=== PATIENT | male | born 2000 | race Caucasian/White ===

== ENCOUNTER 2018-08-25 08:26 | Emergency (ER) | payer OTHER ==
[~2018-08-25] VITALS: Wt 61.4 kg
[2018-08-25 08:35] VITALS: BP 141/79; PULSE 56; RESP 20
[2018-08-25] MEDS ORDERED: KETOROLAC 60 MG INJ IM STA (10:26)
[2018-08-25] MEDS ORDERED: CEFAZOLIN 1 GM INJ IM ONE (12:00)
[2018-08-25] MEDS ORDERED: IBUP-1542 PO (12:25)
[2018-08-25] MEDS ORDERED: CEPH-443 PO (12:25)
--- NOTE | 2018-08-26 22:03 | ERD ---
ER Documentation Chief Complaint Chief Complaint l. toe pain s/p trauma last night HPI 18-year-old male patient with no significant past medical history presents to ED complaining of left great toe injury, crush injury due to the symbols that accidentally fell onto his left great toe. Patient is afebrile and nontoxic- appearing. Patient reports that his nailbed is black and is the most painful. Patient reports that he is able to walk however it hurts his left toe. Denies any fever, chills, sensation, loss of range of motion. ROS All systems reviewed and are negative except as per history of present illness. Medications Home Meds Active Scripts Ibuprofen* (Motrin*) 600 Mg Tab, 600 MG PO Q6, #30 TAB Prov:CRISTINA JENKINS PA-C 08/25/18 Cephalexin* (Keflex*) 500 Mg Capsule, 500 MG PO QID for 7 Days, CAP Prov:CRISTINA JENKINS PA-C 08/25/18 PMhx/Soc Medical and Surgical Hx: pt denies Medical Hx, pt denies Surgical Hx Hx Alcohol Use: No Hx Substance Use: No Hx Tobacco Use: No Smoking Status: Never smoker FmHx Family History: No diabetes, No coronary disease Physical Exam Vitals Vital Signs Date Temp Pulse Resp B/P (MAP) Pulse Ox O2 O2 Flow FiO2 Time Delivery Rate 08/25/18 98.0 56 20 141/79 99 08:35 (99) Physical Exam Const: Sxm-aue-jaxekxxib, well-nourished. In no acute distress. Head: Atraumatic, normocephalic Eyes: Normal Conjunctiva without injection ENT: Normal external ear, nose and mouth. Neck: Full range of motion. No meningismus. Resp: Clear to auscultation bilaterally. No wheezing, rhonchi, rales, or crackles. No accessory muscle use. No retractions. Cardio: Regular rate and rhythm, no murmurs Skin: No petechiae or rashes Back: No midline tenderness. No CVA tenderness. Ext: No cyanosis, or edema. Cap refill less than 2 seconds. Distal pulses intact bilaterally. Subungual hematoma noted of the left great toe. Full range of motion of the hip IP joint, MCP joint bilaterally. Neur: Awake and alert. Normal gait and coordination. Muscle strength 5/5. Sensation intact bilaterally. Psych: Normal Mood and Affect Results 24 hrs Current Medications Medications Dose Sig/Patrick Start Time Status Last (Trade) Ordered Route PRN Stop Time Admin Dose Reason Admin Ketorolac 60 mg ONCE STAT 08/25/18 DC 08/25/18 Tromethamine IM 10:26 10:49 (Toradol) 08/25/18 10:29 Cefazolin 1 gm ONCE ONCE 08/25/18 DC 08/25/18 Sodium IM 12:00 12:37 (Ancef) 08/25/18 12:01 Procedures/MDM 18-year-old male patient with no significant past medical history presents to the ED stating that he was in band practice, accidentally hit his guitar onto the symbols and it fell onto his left great toe crushing it. Patient is afebrile and nontoxic-appearing. Left great toe x-ray was ordered to further evaluate patient. Patient was also noted to have some subungual hematoma. Betadine was used to clean the affected area of the left great toe for sterilization. A electric cauterizer was used to drain patient's subungual hematoma as patient did give consent. No complications of the procedure. Patient was also treated here in the ED with Ancef 1 g. IMPRESSION: Small minimally-displaced fracture of the lateral/plantar base of the great toe distal phalanx. Patient is placed in a orthosis shoe with oneida splint tape. Crutches given to patient to help with ambulation. Splint Assessment: Neurovascularly intact pre and post splint placement with good fit. Patient noted to have a minimally displaced fracture of the base of the left great toe of the distal phalanx of the left foot. Patient's extremity symptoms have stabilized while they have been evaluated in the department and are appropriate for outpatient follow up. No evidence of compartment syndrome, neurologic injury, vascular injury, open joint, open fracture, tendon laceration, septic arthritis, osteomyelitis, DVT, foreign body, or other emergent conditions. This patient was discussed with my supervising physician, Dr. Davidson who agreed with the management discharge plan. Diagnosis: Injury of Toe Discharge medications: Ibuprofen, Keflex Follow up with primary care physician in 1-2 days for referral to orthopedic physician. Instructed patient to return to the ED sooner for any worsening symptoms. Patient's questions were answered. Patient is hemodynamically stable. Patient understood and agreed with discharge plan. Patient discharged stable. Disclaimer: Inadvertent spelling and grammatical errors are likely due to EHR/dictation software use and do not reflect on the overall quality of patient care. Also, please note that the electronic time recorded on this note does not necessarily reflect the actual time of the patient encounter. Departure Diagnosis: Primary Impression: Injury of toe Encounter type: initial encounter Laterality: left Qualified Codes: S99.922A - Unspecified injury of left foot, initial encounter Condition: Stable Patient Instructions: Subungual Hematoma, Fracture, Toe (Open) Referrals: [facility] YOU HAVE RECEIVED A MEDICAL SCREENING EXAM AND THE RESULTS INDICATE THAT YOU DO NOT HAVE A CONDITION THAT REQUIRES URGENT TREATMENT IN THE EMERGENCY DEPARTMENT. FURTHER EVALUATION AND TREATMENT OF YOUR CONDITION CAN WAIT UNTIL YOU ARE SEEN IN YOUR DOCTORS OFFICE WITHIN THE NEXT 1-2 DAYS. IT IS YOUR RESPONSIBILITY TO MAKE AN APPOINTMENT FOR FOLOW-UP CARE. IF YOU HAVE A PRIMARY DOCTOR --you should call your primary doctor and schedule an appointment IF YOU DO NOT HAVE A PRIMARY DOCTOR YOU CAN CALL OUR PHYSICIAN REFERRAL HOTLINE AT IF YOU CAN NOT AFFORD TO SEE A PHYSICIAN YOU CAN CHOSE FROM THE FOLLOWING [facility] [address] [facility] [facility] [address] [facility]. [facility] [address] [facility] [facility] [address] [facility] [facility] [address] [facility]. [facility]. [address] [facility]. [facility] YOU HAVE RECEIVED A MEDICAL SCREENING EXAM AND THE RESULTS INDICATE THAT YOU DO NOT HAVE A CONDITION THAT REQUIRES URGENT TREATMENT IN THE EMERGENCY DEPARTMENT. FURTHER EVALUATION AND TREATMENT OF YOUR CONDITION CAN WAIT UNTIL YOU ARE SEEN IN YOUR DOCTORS OFFICE WITHIN THE NEXT 1-2 DAYS. IT IS YOUR RESPONSIBILITY TO MAKE AN APPOINTMENT FOR FOLOW-UP CARE. IF YOU HAVE A PRIMARY DOCTOR --you should call your primary doctor and schedule and appointment IF YOU DO NOT HAVE A PRIMARY DOCTOR YOU CAN CALL OUR PHYSICIAN REFERRAL HOTLINE AT . IF YOU CAN NOT AFFORD TO SEE A PHYSICIAN YOU CAN CHOSE FROM THE FOLLOWING [facility] INSTITUTIONS[facility] [address] [place] [address] [facility] [address] [place] [address] [facility] [email or web address] [address] [place] [address] [facility] Urgent Care 7 a.m.- 11 p.m. Every Day of the Week NO APPOINTMENT OR AUTHORIZATION NEEDED SO [facility] Hours: Mon-Fri 9:00 AM - 5:00 PM Additional Instructions: Call your primary care doctor TOMORROW for an appointment during the next 2-3 days.See the doctor sooner or return here if your condition worsens before your appointment time. Follow up in 2 days in your clinic for wound check. CRISTINA JENKINS PA-C Aug 26, 2018 22:03
== END 2018-08-25 13:35 | disposition home or self-care (01) ==
LOC: FTE 08:26
DX: S92.422A Displaced fracture of distal phalanx of left great toe, initial encounter for closed fracture (principal); W20.8XXA Other cause of strike by thrown, projected or falling object, initial encounter; Y92.9 Unspecified place or not applicable
CPT/HCPCS: 11740; 73660; 96372; J0690; J1885; L3260; Z7502